=== PATIENT | female | born 1975 | race Caucasian/White ===

== ENCOUNTER 2017-08-25 05:46 | Emergency (ER) | payer SELFPAY ==
[2017-08-25 05:49] VITALS: BP 138/88; PULSE 83; RESP 20; TEMP 36.9; O2SAT 100
--- NOTE | 2017-08-25 05:49 | DI.CT.S_ITS ---
PROCEDURE: CT HEAD/BRAIN WO CON INDICATIONS: first seizure TECHNIQUE: Noncontrast 4.5 mm thick angled axial sections acquired from the foramen magnum to the vertex, with coronal and sagittal reformats. For radiation dose reduction, the following was used: automated exposure control, adjustment of mA and/or kV according to patient size. COMPARISON: None. FINDINGS: Image quality: Excellent. CSF spaces: Basal cisterns are patent. No extra-axial fluid collections. Ventricles are normal in size and shape. Brain: No midline shift. No intracranial masses or hemorrhage. Lora-white matter interface is normal. Skull and face: Calvarium and visualized facial bones are intact, without suspicious lesions. Sinuses: Visualized sinuses and mastoids are clear. IMPRESSION: No acute intracranial abnormality. 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 Dictated by: Manuela Naranjo M.D. on 08/25/2017 at 7:40 Approved by: Manuela Naranjo M.D. on 08/25/2017 at 7:41
[2017-08-25] MEDS: LORazepam 2 MG/ML SYRINGE 1 MG IV (06:00)
[2017-08-25] MEDS: SODIUM CHLORIDE 0.9% 1,000 ML 1000 ML IV (06:01)
[2017-08-25] MEDS: THIAMINE 100 MG in DEXTROSE 5 % IN WATER 50 ML 204 ML IV (06:01)
[2017-08-25 06:25] LABS: Basophils Percent Auto 1.3 % (0-2); Eosinophils Percent Auto 0.9 % (2-4); Hematocrit 37.6 % (36-46); Hemoglobin 13.2 g/dL (12.0-16.0); Lymphocytes Percent Auto 22.8 % (25-40); Mean Corpuscular Hemoglobin 39.6 PG (26-34); Mean Corpuscular Volume 113.3 fL (80-100); Monocytes Percent Auto 15.1 % (3-14); Neutrophils Absolute Auto 1500 /uL (3000-5900); Neutrophils Percent Auto 59.9 % (50-75); Platelet Count 96 X10^3/uL (150-400); Red Blood Cell Count 3.32 X10^6/uL (4.0-5.2); Red Cell Distribution Width 12.1 % (11.6-14.8); White Blood Cell Count 2.5 X10^3/uL (4.5-11.0)
[2017-08-25 06:27] LABS: Add Manual Diff / Slide Review SLIDE REVIEW
[2017-08-25 06:32] LABS: Ethanol (ETOH) 174 mg/dL
[2017-08-25 06:33] LABS: Calcium 8.1 mg/dL (8.4-10.2); Estimated Glomerular Filt Rate > 60.0 mL/min (>60); Glucose 85 mg/dL (70-100); HEMOLYSIS 22 (0-50); Magnesium 1.6 mg/dL (1.6-2.3); Potassium 3.7 mmol/L (3.4-5.1); Sodium 145 mmol/L (137-145)
[2017-08-25 06:41] LABS: Anisocytosis 1+; Macrocytosis 2+
[2017-08-25 06:49] LABS: Prolactin 40.4 ng/mL (3.0-18.6)
[2017-08-25 07:18] VITALS: BP 127/84; PULSE 82; RESP 14; O2SAT 97
--- NOTE | 2017-08-26 21:25 | ED_ITS ---
HPI - Seizure General Chief Complaint: Seizure Stated Complaint: Seizure Time Seen by Provider: 08/25/17 05:47 Source: patient and EMS Mode of arrival: EMS Limitations: no limitations History of Present Illness HPI Narrative: Patient presents to the emergency department this morning via EMS for evaluation of a first-time seizure which was witnessed by her this morning. He noted full body seizure like activity for approximately 45 sec with about a 5-10 minute postictal phase. She has never had seizures before and denies any recent illness, injuries or headaches. She does state that she has been under tremendous stress at work and his L&I had 2 days off this month with minimal sleep. She drinks multiple shots daily and has been trying to cut back MD complaint: seizure Onset (ago): hour(s) Description of Episode: loss of consciousness and tonic-clonic movement Duration of episode: 45 -: second(s) Witnessed: yes - by bystander Trauma: No Seizure History: none Place: home Possible Precipitating Event: alcohol withdrawal, lack of sleep and stress Associated symptoms: denies other symptoms Treatments prior to arrival: none Related Data Previous Rx's Medication Instructions Recorded lorazepam [Ativan] See Label Instructions .ROUTE 08/25/17 .COMPLEX PRN #19 tab Allergies Allergy/AdvReac Type Severity Reaction Status Date / Time Penicillin Allergy Unknown Uncoded 07/13/17 13:10 Review of Systems Review of Systems All systems reviewed & are unremarkable except as noted in HPI and below Constitutional Denies chills, Denies fever(s), Denies lethargy and Denies weakness Eyes Denies change in vision, Denies eye discharge, Denies irritation and Denies loss of vision Cardiovascular Denies chest pain, Denies irregular heart rhythm, Denies lightheadedness, Denies palpitations and Denies orthopnea Gastrointestinal Gastrointestinal: Denies abdominal pain, Denies change in bowel habits, Denies diarrhea, Denies nausea and Denies vomiting Genitourinary Denies hematuria, Denies flank pain, Denies urinary incontinence and Denies urinary urgency Musculoskeletal Denies back pain, Denies muscle weakness, Denies numbness and Denies tingling Integumentary/Breasts Denies pruritus, Denies erythema, Denies rash and Denies wounds Neurologic Denies confusion, Denies loss of vision, Denies numbness, Reports seizure-like activity, Denies tingling and Denies weakness Psychiatric Denies anxiety, Denies confusion, Denies depression, Denies homicidal ideation and Denies suicidal ideation Endocrine Denies palpitations Hematologic/Lymphatic Denies easy bruising PFSH Social History marital status: household members: spouse lives independently: Yes housing: house occupational status: employed alcohol intake: current substance use type: marijuana Exam Narrative Exam Narrative: Slightly unkempt 42-year-old female in mild distress. She appears a bit tremulous Initial Vital Signs Initial Vital Signs: Vital Signs Temperature 98.4 F 08/25/17 05:49 Pulse Rate 83 08/25/17 05:49 Respiratory Rate 20 08/25/17 05:49 Blood Pressure 138/88 H 08/25/17 05:49 Pulse Oximetry 100 08/25/17 05:49 138/88, pulse 83, respirations 20, temp 97.1?, pulse ox 100% Const General: cooperative, No healthy appearing, well developed, No well groomed, in distress and anxious Nutritional Appearance: well nourished Orientation: alert, awake, oriented x3 and not confused HENPA Head: normocephalic and atraumatic Ears: external ears normal and TM's normal bilaterally Nose: external nose normal and No nasal discharge Face and sinus: sinuses nontender, face symmetric, no sinus tenderness and No dry mucous membranes Mouth: oral mucosae normal and moist mucous membranes Teeth and gingiva: dentition normal Throat: tonsils normal and uvula midline Eyes General: appearance normal, both eyes and all related structures Eyelids: eyelids normal Conjunctivae: conjunctivae normal Sclera: sclerae normal Pupils: PERRL EOM: EOM intact bilaterally Neck Neck: normal visual inspection, no meningeal signs, trachea midline, No lymphadenopathy, No midline deformity and No JVD Lymphatic: No lymphedema Resp Effort & Inspection: normal respiratory effort, able to speak in complete sentences, no respiratory distress and no use of accessory muscles Auscultation: clear to auscultation bilaterally, no rales, no rhonchi and no wheezes Cardio Rate: regular rate Rhythm: regular rhythm Heart Sounds: no click, no gallops, no murmurs and no rubs Pulses: normal peripheral pulses GI Inspection: non-distended Palpation: soft, no hepatosplenomegaly, No guarding, No pulsatile mass and No tender Auscultation: normal bowel sounds Back/Spine/Pelvis Back: No CVA tenderness Cervical Spine: cervical ROM normal and No pain with cervical ROM Thoracic/Lumbar Spine: thoracic and lumbar spine normal to inspection Skin General: no rashes or lesions noted, No jaundice and No petechiae Neuro General: alert, oriented x3, gait normal and no focal motor deficits Speech: speech normal Extrem General: full ROM, no clubbing, cyanosis or edema, no pedal edema and no calf tenderness Psych Appearance: disheveled Mental Status: mental status grossly normal Speech and Movement: agitated Mood: anxious mood Affect: anxious affect Attitude: cooperative Thought Content: normal and suicidality Judgment: judgment good Course Orders Ordered: Discontinued Medications Sodium Chloride (Normal Saline 0.9%) 1,000 mls @ 1,000 mls/hr IV BOLUS ONE Stop: 08/25/17 06:48 Last Infusion: 08/25/17 07:22 Dose: 0 mls/hr Admin: 08/25/17 06:01 Dose: 1,000 mls/hr Thiamine HCl 100 mg/ Dextrose 51 mls @ 204 mls/hr IV NOW ONE Stop: 08/25/17 06:01 Last Infusion: 08/25/17 07:22 Dose: 0 mls/hr Admin: 08/25/17 06:01 Dose: 204 mls/hr Lorazepam (Ativan) 1 mg IV NOW ONE Stop: 08/25/17 05:50 Last Admin: 08/25/17 06:00 Dose: 1 mg MDM - Seizure Lab Data Result diagrams: 08/25/17 06:15 08/25/17 06:15 Lab Results 08/25/17 08/25/17 08/25/17 Range/Units 06:15 06:15 06:15 WBC 2.5 L (4.5-11.0) X10^3/uL RBC 3.32 L (4.0-5.2) X10^6/uL Hgb 13.2 (12.0-16.0) g/dL Hct 37.6 (36-46) % MCV 113.3 H (80-100) fL MCH 39.6 H (26-34) PG MCHC 35.0 (30-36) % RDW 12.1 (11.6-14.8) % Plt Count 96 L (150-400) X10^3/uL Neut % (Auto) 59.9 (50-75) % Lymph % (Auto) 22.8 L (25-40) % [place] % (Auto) 15.1 H (3-14) % Eos % (Auto) 0.9 L (2-4) % Baso % (Auto) 1.3 (0-2) % Neut # (Auto) 1500 L (0709-7056) /uL RBC Morphology Not Reportable Anisocytosis 1+ H Macrocytosis 2+ H Sodium 145 (137-145) mmol/L Potassium 3.7 (3.4-5.1) mmol/L Chloride 106.0 (98-107) mmol/L Carbon Dioxide 25.0 (22-32) mmol/L BUN 8.0 (7-17) mg/dL Creatinine 0.50 L (0.52-1.04) mg/dL Estimated GFR > 60.0 (>60) mL/min BUN/Creatinine Ratio 16.0 (6-22) Glucose 85 (70-100) mg/dL Calcium 8.1 L (8.4-10.2) mg/dL Magnesium 1.6 (1.6-2.3) mg/dL Prolactin 40.4 H (3.0-18.6) ng/mL Ethyl Alcohol 174 mg/dL Discharge Plan Departure Patient Disposition: Home, Self-Care Clinical Impression: New onset seizure, Alcohol abuse Discharge Date/Time: 08/25/17 07:22 Interventions: ED Discharge Assessment Last Done: 08/25/17 07:21 Instructions: Alcohol Use Disorder Prescriptions: New lorazepam [Ativan] 1 mg tablet See Label Instructions .ROUTE .COMPLEX PRN (Reason: alcohol withdrawal) Qty : 19 RF: 0 Referrals: Luis A Moise MD [Primary Care Provider] -
== END 2017-08-25 07:22 | disposition home or self-care (01) ==
PROVIDERS: Emergency Provider Emergency Medicine; Family Provider Family Medicine; PCP Family Medicine
DX: R56.9 Unspecified convulsions (principal); F10.10 Alcohol abuse, uncomplicated
CPT/HCPCS: 70450; 80048; 80320; 82962; 83735; 84146; 85025; 96365; 96366; 96375; 99283; 99284; J2060